=== PATIENT | male | born 1990 | race Caucasian/White ===

== ENCOUNTER 2017-12-03 00:49 | Emergency (ER) | payer OTHER ==
[~2017-12-03] VITALS: Ht 175.3 cm; Wt 93.7 kg
[~2017-12-03 00:49] MED LIST: LEXA10TA PO
[2017-12-03] MEDS ORDERED: LORazepam 2 MG/ML VIAL IM ONE (01:30)
[2017-12-03] MEDS ORDERED: HALOPERIDOL LACTATE 5 MG/ML AMP IM ONE (01:30)
--- NOTE | 2017-12-03 02:27 | PD ---
HPI Chief Complaint: Psychiatric Symptoms Time Seen by Provider: 01:11 Travel History International Travel<30 days: No Contact w/Intl Traveler<30days: No Traveled to known affect area: No History of Present Illness HPI Patient is a 27-year-old male presenting to the emergency department under Duenas act for psychiatric evaluation. Patient was transferred for Hospital in [place]. He initially presented there for detox from cocaine and amphetamines. Patient was advised that they did not do detox there he reported feeling suicidal. Patient reported seeing shadows and hallucinating. Patient reports that he was homeless. He wants to get clean for his children. He currently denies any suicidal ideations and denies that he stated that. Patient began to behave erratically and became physically threatening. H&P is limited due to patient's behavior. PFSH Past Medical History ADHD: Yes Cancer: No Diabetes: Yes Psychiatric: Yes (ADHD) Migraines: No Seizures: No Thyroid Disease: No Ulcer: No Past Surgical History Appendectomy: No Cholecystectomy: No Social History Alcohol Use: Yes Tobacco Use: No Substance Use: Yes (MARIJUANA, ECSTASY, VALIUM) Allergies-Medications (Allergen,Severity, Reaction): Coded Allergies: No Known Allergies (Verified Allergy, Severe, 05/17/06) Reported Meds & Prescriptions Reported Meds & Active Scripts Active Reported Lexapro (Escitalopram Oxalate) 10 Mg Tab 10 Mg PO DAILY [None] [None] Review of Systems ROS Limitations: Refused, Combative Except as stated in HPI: all other systems reviewed are Neg Psychiatric: Positive: Suicidal Ideations, Substance Abuse Physical Exam Narrative GENERAL: Well-developed, well-nourished, alert male. Presenting in no acute distress. SKIN: Warm and dry. HEAD: Atraumatic. Normocephalic. EYES: Pupils equal and round. No scleral icterus. No injection or drainage. ENT: No nasal bleeding or discharge. Mucous membranes pink and moist. NECK: Trachea midline. No JVD. CARDIOVASCULAR: Regular rate and rhythm. RESPIRATORY: No accessory muscle use. Clear to auscultation. Breath sounds equal bilaterally. GASTROINTESTINAL: Abdomen soft, non-tender, nondistended. Hepatic and splenic margins not palpable. MUSCULOSKELETAL: Extremities without clubbing, cyanosis, or edema. No obvious deformities. NEUROLOGICAL: Awake and alert. No obvious cranial nerve deficits. Motor grossly within normal limits. Five out of 5 muscle strength in the arms and legs. Normal speech. PSYCHIATRIC: Combative mood and affect; insight and judgment impaired. Data Data Last Documented VS Vital Signs Date Time Temp Pulse Resp B/P (MAP) Pulse Ox O2 Delivery O2 Flow Rate FiO2 12/03/17 02:30 98.2 86 17 148/76 (100) 95 Room Air Orders Orders Psych Screen (12/03/17 01:06) Haloperidol Inj (Haldol Inj) (12/03/17 01:30) Lorazepam Inj (Ativan Inj) (12/03/17 01:30) Restraints Violent (12/03/17 01:45) MDM Medical Decision Making Medical Screen Exam Complete: Yes Emergency Medical Condition: Yes Medical Record Reviewed: Yes Interpretation(s) Vital Signs Date Time Temp Pulse Resp B/P (MAP) Pulse Ox O2 Delivery O2 Flow Rate FiO2 12/03/17 02:30 98.2 86 17 148/76 (100) 95 Room Air Differential Diagnosis Mood disorder versus substance abuse versus metabolic abnormality versus malingering versus other Narrative Course Patient is a 27-year-old male presenting from [facility] under Duenas act for psychiatric evaluation. Medical records reviewed, labs are unremarkable. Urine drug screen is positive for amphetamines, cocaine, marijuana. Patient was combative and physically threatening on arrival, he was placed in restraints for his safety as well as safety of the staff. He was given Haldol and Ativan. While at [facility] he was started on Seroquel. Patient is medically clear for psychiatric evaluation. Diagnosis Primary Impression: Medical clearance for psychiatric admission Additional Impressions: Polysubstance abuse Suicidal ideations Condition: Stable Slime Taylor Dec 03, 2017 02:27
[2017-12-03 02:30] VITALS: BP 148/76; PULSE 86; RESP 17; TEMP 98.2; O2SAT 95
[2017-12-03 05:01] VITALS: BP 122/60; PULSE 64; RESP 18; TEMP 98.3; O2SAT 98
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
[2017-12-03 15:57] VITALS: BP 120/58; PULSE 124; RESP 18; TEMP 98.4; O2SAT 99
--- NOTE | 2017-12-03 17:22 | PD ---
Physical Exam Time Seen by Provider: 17:18 Narrative CASIE Gamino has evaluated the patient, lifted the Duenas act and cleared the patient for discharge. Data Data Last Documented VS Vital Signs Date Time Temp Pulse Resp B/P (MAP) Pulse Ox O2 Delivery O2 Flow Rate FiO2 12/03/17 15:57 98.4 124 18 120/58 (78) 99 Room Air Orders Orders Psych Screen (12/03/17 01:06) Haloperidol Inj (Haldol Inj) (12/03/17 01:30) Lorazepam Inj (Ativan Inj) (12/03/17 01:30) Restraints Violent (12/03/17 01:45) Diet Diabetic (12/03/17 Breakfast) Diet 1800 Ada Cons Carb (12/03/17 Lunch) Diet 1800 Ada Cons Carb (12/03/17 Dinner) MDM Supervised Visit with LUZ ELENA: No Narrative CASIE Jj has evaluated the patient, lifted the Duenas act and cleared the patient for discharge. Patient contracts safety. Denies suicidal or homicidal ideations. Patient will be provided community resource packet to /ROSENDO for follow-up. Has friends and family for support. Patient was medically cleared by alternate provider prior to psych screening. Patient has been evaluated by psychiatry and and is now cleared for discharge. Diagnosis Primary Impression: Polysubstance abuse Ruled Out: Suicidal ideations Referrals: ROSENDO (Out patient) [facility] Primary Care Physician Psychiatrist Leonidas ROBBINS Behavioral Patient Instructions: General Instructions, Polysubstance Abuse (ED) Additional Instruction: Contract safety to your self and others Follow-up with psychiatry Follow-up with primary care provider Follow-up with Tomy Manzanares Return to the emergency department immediately with worsening of symptoms Med/Other Pt SpecificInfo: No Change to Meds, No Meds Exist/No RX given Disposition: 01 DISCHARGE HOME Condition: Stable Anna Peterson Dec 03, 2017 17:22
== END 2017-12-03 17:54 | disposition home or self-care (01) ==
LOC: NEPJ 00:49
DX: F19.10 Other psychoactive substance abuse, uncomplicated (principal); F15.10 Other stimulant abuse, uncomplicated; F90.9 Attention-deficit hyperactivity disorder, unspecified type; R45.851 Suicidal ideations; E11.9 Type 2 diabetes mellitus without complications; Z79.899 Other long term (current) drug therapy; Z59.0 Homelessness
CPT/HCPCS: 96372; 99284; J1630; J2060